=== PATIENT | male | born 2000 | race Caucasian/White ===

== ENCOUNTER 2025-02-05 19:47 | Emergency (ER) | payer OTHER, SELFPAY ==
[2025-02-05 19:49] VITALS: BP 178/96
[2025-02-05 20:09] LABS: Hematocrit 44.6 % (39.0-52.0); Hemoglobin 15.5 g/dL (13.0-18.0); Mean Corp Hgb Conc. 34.8 g/dL (33.0-37.0); Mean Corpuscular Volume 84.8 fL (80.0-94.0); Nucleated Red Blood Cells % 0 % (-); Platelet Count 285 10^3/uL (130-400); Red Cell Dist. Width 12.5 % (11.5-14.5)
[2025-02-05 20:21] LABS: ALT (SGPT) 24 U/L (0-50); AST (SGOT) 23 U/L (17-59); Albumin 5.3 g/dl (3.5-5.0); Alkaline Phosphatase 55 U/L (38-126); Blood Urea Nitrogen 13 mg/dl (9-20); Calcium 9.9 mg/dl (8.4-10.2); Carbon Dioxide 26 mmol/L (22-30); Chloride 108 mmol/L (98-107); Glucose 91 mg/dl (70-99); Potassium 4.1 mmol/L (3.5-5.1); Sodium 143 mmol/L (135-145); Total Protein 8.3 g/dl (6.3-8.2); eGFR > 60.00
[2025-02-05 22:31] VITALS: BP 141/86; BMI 33.5
[2025-02-05 23:00] VITALS: BP 129/78
[2025-02-06] VITALS: BP 129/78
[2025-02-06 00:20] VITALS: BP 137/91
[2025-02-06 00:21] VITALS: BP 144/101
[2025-02-06 00:23] VITALS: BP 148/95
[2025-02-06 00:26] VITALS: BP 137/91; BP 144/101; BP 148/95; PULSE 64; PULSE 68; PULSE 76
[2025-02-06] MEDS: FLEXERIL 10 MG PO (00:34)
[2025-02-06] MEDS: TORADOL 60 MG IM (00:34)
--- NOTE | 2025-02-06 00:44 | ED.GENMED ---
History of Present Illness
General
Chief Complaint: Back Pain
Source: patient
Exam Limitations: none
Time Seen by Provider: 02/06/25 00:07
Nursing documentation reviewed up to this point in time: agreed with
History of Present Illness
History of Present Illness:
This is a 24-year-old male with history of sleep apnea, ADD. He has been following with a dentist over the past several weeks, being treated for right upper molar dental infection and is scheduled for dental extraction February 15. Currently taking a
course of amoxicillin.
Approximately 1 month ago he was evaluated in a different ER for similar dental pain and prescribed ibuprofen. That prescription has run out.
He recently began a part-time job at [employer] and admits to heavy lifting, bending and although denies insightful injury he states he woke up 3 days ago with generalized lower back pain that has been persistent. Back pain is nonradiating, no
weakness or numbness. Low back pain is worse with movement, most noted with bending over at his waist. No history of similar episodes in the past. He denies abdominal pain, no difficulty moving his bowels or bladder, no saddle anesthesia, no
fever nor chills, no rash.
He has been taking [id number] ibuprofen with minimal relief.
Over the past 2 days he is also noted intermittent brief blurry vision, sporadic in nature, most noted when he is standing and also noted with right upper molar dental pain. He denies headache, denies dizziness nor lightheadedness, no chest pain or
palpitations, no cough no shortness of breath.
Past History
Past History
ED Past Medical History: Psychiatric (ADHD) and Other (Obstructive sleep apnea)
ED Past Surgical History: Tonsilectomy
Social History
Tobacco: Non-smoker
Alcohol: Occasional
Drug: Marijuana
Personal: Single
Employment: Employed
Family History
Family History: Other (Noncontributory)
Phy Exam
Physical Exam
Physical Exam:
GENERAL: 24-year-old male appears his stated age. Awake and alert, pleasant, appears in no acute distress. Mildly disheveled. Easily communicative. Anicteric. Moderately elevated systolic blood pressure initially, has improved to 130s to 140s
systolic.
EYE: pupils equal and reactive. anicteric
NECK: Supple, nontender, no meningismus, no significant adenopathy.
ENT: posterior pharynx is clear, oral mucosa is moist. TM clear b/l, nares patent. Right upper first molar with posterior dental carry, moderate local tenderness to palpation. There is no gingival erythema nor edema. No facial edema nor erythema.
No trismus.
CARDIAC: Regular rate and rhythm. no murmur.
LUNGS: Clear breath sounds bilaterally, no acute respiratory distress, no wheezes/rales/rhonchi
ABDOMEN: Soft, nondistended, without focal tenderness, no r/g, no cvat. normoactive BS.
BACK: No midline bony tenderness. Mild bilateral lumbar paravertebral muscular ropiness with mild paravertebral tenderness to palpation. Straight leg raising is negative bilaterally. Mildly restricted lumbar flexion with increased pain at limits
of flexion.
NEUROLOGICAL: Alert and oriented x3, no focal neuro deficits. Gait is schofield and steady.
SKIN: Warm and dry, normal color, skin intact. No rash.
MUSCULOSKELETAL: No C/C/E. peripheral pulses are full and equal b/l. No palpable tenderness.
PSYCH: Normal and appropriate interaction.
Course
Orders/Labs/Results
Orders:
Orders
02/05/25 20:02
Complete Blood Count/With Diff Urgent
Comprehensive Metabolic Panel Urgent
02/06/25 00:20
Orthostatic VS- Treatment ONCE
Cyclobenzaprine HCl [Flexeril] 10 mg PO NOW STA
Ketorolac [Toradol] 60 mg IM NOW STA
Abnormal Lab Results
02/05/25
20:02
WBC 11.4 H 10^3/uL
(4.8-10.8)
Abs Immat Gran (auto) 0.1 H 10^3/uL
(0-0.05)
Absolute Neuts (auto) 7.4 H 10^3/uL
(1.4-6.5)
Absolute Monos (auto) 0.7 H 10^3/uL
(0.1-0.6)
Chloride 108 H mmol/L
(98-107)
Total Protein 8.3 H g/dl
(6.3-8.2)
Albumin 5.3 H g/dl
(3.5-5.0)
02/05/25 20:02
02/05/25 20:02
Vital Signs
Initial and Last Documented VS:
Initial Vital Signs
Temp Pulse Resp BP Pulse Ox
98 F 60 18 178/96 99
02/05/25 19:49 02/05/25 19:49 02/05/25 19:49 02/05/25 19:49 02/05/25 19:49
Last Documented Vital Signs
Temp Pulse Resp BP Pulse Ox
98 F 60 18 148/95 100
02/05/25 19:49 02/05/25 19:49 02/05/25 19:49 02/06/25 00:23 02/06/25 00:23
MDM/Problems Addressed
Differential Diagnosis Includes:
24-year-old gentleman presents with several day history of low back pain that appears musculoskeletal strain in nature. No red flags in history nor exam. No focal neurodeficits. No abdominal symptoms. No fever.
He also notes several week history of right upper molar dental pain. Currently on antibiotic via dentist. There is note of a focal dental carry but no evidence of dental abscess nor facial cellulitis. He is afebrile.
He is also concerned with intermittent brief blurry vision most noted with right upper molar dental pain. Concern for a bit of heat related illness, dehydration versus dental pain related.
Exam is overall benign, no focal deficits.
Labs show minimally elevated white blood cell count of 11.4. Chemistries are unremarkable.
Will check orthostatic vital signs assess for potential orthostasis.
No indication for imaging.
Will medicate for pain with an IM dose of Toradol and plan for prescription for ibuprofen as well as Flexeril for muscle spasm.
Recommend local heat, rest and plan for prompt follow-up with PCP for recheck.
Patient request referral to a PCP closer to this area�he has been provided with referral to our family practice residency clinic.
Patient has follow-up with dentist scheduled for February 15 for dental extraction. Recommend he continue antibiotics as already prescribed.
*Pulse Oximetry
SaO2: 100
Oxygen Mode of Delivery: Room air
Patient hypoxic: no
*Critical Care Note
Total Time (30-74mins, 75-104mins- exclusive of procedures): Not Applicable
ED Attending Note
-
Portions of this chart may have been created with voice recognition software.� Occasional wrong word or��sound alike� substitutions may have occurred due to the inherent limitations of voice recognition software.
Discharge Plan
Departure
Patient Disposition: Home (Routine Discharge)
Date of Disposition: 02/06/25
Time of Disposition: 00:44
Patient with high blood pressure during this ER visit?: Yes
Condition: Good
Discharge Problem:
Acute lumbar myofascial strain, Dentalgia
Instructions: Low Back Pain (DC), BLOOD PRESSURE
Prescriptions:
New
cyclobenzaprine 10 mg tablet
10 mg PO TIDPRN PRN (Reason: muscle spasm) Qty: 20 0RF
ibuprofen 800 mg tablet
800 mg PO QIDPRN PRN (Reason: pain, fever) Qty: 30 0RF
Referrals:
[facility] [Provider Group] - Call in 1-3 days for appt
Nicolas Anthony MD [Family Provider, [facility]]
Activity Restrictions/Additional Instructions:
Continue antibiotic as instructed.
Follow-up with your dentist as already scheduled.
Interventions
Interventions:
*Risk Screen - Suicide Last Done: 02/05/25 19:49
*General Assessment Last Done: 02/05/25 19:49
*Neglect/Abuse Screening Last Done: 02/05/25 19:49
*ED- Fall Risk Assessment Last Done: 02/05/25 22:31
*ED COVID-19 Vaccine History Last Done: 02/05/25 22:31
ED-Musculoskeletal Assessment Last Done: 02/05/25 22:31
Discharge Date and Time
Print Language: [place]
== END 2025-02-06 00:57 | disposition home or self-care (01) ==
LOC: EMR 19:47
PROVIDERS: Student in an Organized Health Care Education/Training Program; EMERGENCY PHYSICIAN Emergency Medicine; FAMILY PHYSICIAN Family Medicine
DX: S39.012A Strain of muscle, fascia and tendon of lower back, initial encounter (principal); X58.XXXA Exposure to other specified factors, initial encounter; K08.89 Other specified disorders of teeth and supporting structures; G47.33 Obstructive sleep apnea (adult) (pediatric)
CPT/HCPCS: 96372; 99284; 80053; 85025